=== PATIENT | female | born 1980 | race Caucasian/White ===

== ENCOUNTER 2020-12-01 08:03 | Outpatient (CLI) | payer OTHER, SELFPAY | END 2020-12-01 08:04 | disposition home or self-care (01) | LOC: ANHCOVIDVC 08:03 | PROVIDERS: PCP Family Medicine | DX: Z23 Encounter for immunization (principal) | CPT/HCPCS: 0001A; 91300 ==

== ENCOUNTER 2020-12-22 08:07 | Outpatient (CLI) | payer OTHER, SELFPAY | END 2020-12-22 08:08 | disposition home or self-care (01) | LOC: ANHCOVIDVC 08:07 | PROVIDERS: PCP Family Medicine | DX: Z23 Encounter for immunization (principal) | CPT/HCPCS: 0002A; 91300 ==

== ENCOUNTER 2023-04-03 09:49 | Outpatient (CLI) | payer OTHER, SELFPAY ==
[2023-04-03 21:12] LABS: Alanine Aminotransferase 45 U/L (6-35); Albumin Level 4.1 g/dL (3.5-5.1); Alkaline Phosphatase 98 U/L (38-126); Anion Gap 6 mmol/L (8-16); Aspartate Amino Transferase 45 U/L (14-36); Bilirubin,Total 0.4 mg/dL (0.2-1.3); Blood Urea Nitrogen 11 mg/dL (7-17); Calcium 9.4 mg/dL (8.4-10.2); Carbon Dioxide 27 mmol/L (22-30); Chloride 104 mmol/L (98-107); Estimated Glomerular Filt Rate > 60; Glucose 86 mg/dL (65-110); Potassium 4.5 mmol/L (3.4-5.0); Sodium 137 mmol/L (137-145)
[2023-04-04 01:16] LABS: Hemoglobin A1C 5.7 % (<5.7)
== END 2023-04-03 09:50 | disposition home or self-care (01) ==
LOC: ANHGOSHLAB 09:52
PROVIDERS: PCP Family Medicine; Visit Provider Family Medicine
DX: E78.5 Hyperlipidemia, unspecified (principal); R53.83 Other fatigue; R73.9 Hyperglycemia, unspecified
CPT/HCPCS: 36415; 80053; 83036; 84443

== ENCOUNTER 2023-09-27 14:30 | Outpatient (CLI) | payer OTHER, SELFPAY ==
[2023-09-27 19:39] LABS: Alanine Aminotransferase 38 U/L (6-35); Albumin Level 4.2 g/dL (3.5-5.1); Alkaline Phosphatase 95 U/L (38-126); Anion Gap 9 mmol/L (8-16); Aspartate Amino Transferase 32 U/L (14-36); Bilirubin,Total 0.5 mg/dL (0.2-1.3); Blood Urea Nitrogen 12 mg/dL (7-17); Calcium 9.6 mg/dL (8.4-10.2); Carbon Dioxide 23 mmol/L (22-30); Chloride 105 mmol/L (98-107); Estimated Glomerular Filt Rate > 60; Glucose 99 mg/dL (65-110); Sodium 137 mmol/L (137-145)
[2023-09-27 20:00] LABS: Hepatitis B Surface Antigen Negative (Negative)
[2023-09-27 20:06] LABS: HAV RESULT Negative (Negative); Hemoglobin A1C 5.8 % (<5.7); Hepatitis B Core IgM Result Negative (Negative)
[2023-09-27 20:17] LABS: Hepatitis C Virus Antibody Negative (Negative)
== END 2023-09-27 14:31 | disposition home or self-care (01) ==
LOC: ANHGOSHLAB 14:31
PROVIDERS: PCP Family Medicine; Visit Provider Family Medicine
DX: R74.8 Abnormal levels of other serum enzymes (principal); E78.5 Hyperlipidemia, unspecified; R53.83 Other fatigue; R73.9 Hyperglycemia, unspecified
CPT/HCPCS: 36415; 80053; 80074; 82248; 83036; 84443

== ENCOUNTER 2024-04-07 08:39 | Outpatient (CLI) | payer OTHER, SELFPAY ==
[2024-04-07 15:54] LABS: Alanine Aminotransferase 34 U/L (6-35); Albumin Level 3.9 g/dL (3.5-5.1); Alkaline Phosphatase 90 U/L (38-126); Anion Gap 7 mmol/L (4-12); Aspartate Amino Transferase 44 U/L (14-36); Bilirubin,Total 0.5 mg/dL (0.2-1.3); Blood Urea Nitrogen 10 mg/dL (7-17); Calcium 9.3 mg/dL (8.4-10.2); Carbon Dioxide 26 mmol/L (22-30); Chloride 105 mmol/L (98-107); Cholesterol 169 mg/dL (0-200); Estimated Glomerular Filt Rate > 60; Glucose 94 mg/dL (65-110); HDL Direct 47 mg/dL; Potassium 4.2 mmol/L (3.4-5.0); Sodium 138 mmol/L (137-145); Triglycerides 110 mg/dL (<150)
[2024-04-07 16:05] LABS: LDL Cholesterol Direct 88 mg/dL
[2024-04-07 16:52] LABS: Hemoglobin A1C 5.8 % (<5.7)
== END 2024-04-07 08:40 | disposition home or self-care (01) ==
LOC: ANHGOSHLAB 08:41
PROVIDERS: PCP Family Medicine; Visit Provider Family Medicine
DX: E78.5 Hyperlipidemia, unspecified (principal); R73.9 Hyperglycemia, unspecified; R53.83 Other fatigue; R73.03 Prediabetes
CPT/HCPCS: 36415; 80053; 80061; 83036; 84443

== ENCOUNTER 2024-06-30 11:37 | Emergency (ER) | payer OTHER, SELFPAY ==
--- NOTE | ~2024-06-30 | XR_ITS ---
EXAMINATION: XR chest 2V 06/30/2024 12:31 INDICATION: Cough PROCEDURE: 2 view chest COMPARISON: No prior studies for comparison. FINDINGS: The lungs are clear. The cardiomediastinal silhouette is within normal limits. There are no pleural effusions. There is no pneumothorax suspected. IMPRESSION: 1: NO ACUTE CARDIOPULMONARY DISEASE. Reviewed, dictated and finalized at location B.
[2024-06-30 11:45] VITALS: BP 154/94; PULSE 98; RESP 18; TEMP 37.1; O2SAT 97
--- NOTE | 2024-06-30 12:10 | ED.URI ---
HPI - URI/Sore Throat General Chief Complaint: Upper Respiratory Infection Stated Complaint: Cold Symptoms Time Seen by Provider: 06/30/24 11:55 Source: patient and RN notes reviewed Mode of arrival: ambulatory Limitations: no limitations History of Present Illness HPI Narrative: Patient presents today with a one-week history of harsh cough, postnasal drip, shortness of breath with exertion. She also reports intermittent fevers up to 100 in the evenings. She has been taking Tylenol and ibuprofen with some relief. Four days ago she called her PCP's office to report her symptoms and they called her in a prescription for cephalexin which has not helped improve her symptoms. Related Data Home Medications Medication Instructions Recorded Confirmed sertraline 50 mg tablet 50 mg PO DAILY 06/30/24 06/30/24 Allergies Allergy/AdvReac Type Severity Reaction Status Date / Time ampicillin Allergy Unknown Rash Verified 06/18/24 14:02 clarithromycin Allergy Unknown Rash Verified 06/18/24 14:02 Review of Systems Review of Systems: CONSTITUTIONAL: Denies body aches, chills, or sweats.+ fever EYES: Denies visual changes, redness, or discharge. ENT: Denies rhinorrhea, congestion, sore throat, or otalgia.+ postnasal drip CARDIOVASCULAR: Denies chest pain, palpitations, or edema. RESPIRATORY: + cough, shortness of breath with exertion GASTROINTESTINAL: Denies abdominal pain, nausea, vomiting, or diarrhea. GENITOURINARY: Denies dysuria or hematuria. SKIN: Denies rash, itching, or wounds. MUSCULOSKELETAL: Denies back pain, joint pain, or myalgia. NEUROLOGIC: Denies headache, numbness, tingling, or weakness. PSYCH: Denies depression or anxiety. [facility] Past Medical History Medical History Prediabetes Social History Social History Smoking status: Former smoker Smoking end date: 09/17/12 Alcohol intake: never Comments At time of signature, I have reviewed and agree with nursing past medical, surgical, social and family history unless otherwise noted. Please see nursing chart for further information. There is no relevant family history pertinent to the presenting complaint Exam Narrative: GENERAL: Mildly ill-appearing, well-nourished, and in no acute distress. HEAD: Normocephalic, atraumatic. EYES: EOMI. No redness or drainage. Conjunctivae normal. ENT: Mucous membranes pink and moist. Nares clear. No rhinorrhea. TMs normal bilaterally. Throat normal. Uvula midline. NECK: Normal AROM. Supple. No lymphadenopathy. CHEST: No respiratory distress. Rhonchi in the left lower lobe, otherwise clear. Harsh cough noted frequently HEART: Regular rate and rhythm. No murmur appreciated. MUSCULOSKELETAL: No bony tenderness. EXTREMITIES: Normal range of motion. No edema. SKIN: Warm, dry, no rash. Capillary refill normal. Normal skin turgor. NEURO: No focal deficits. Alert and oriented x3. Gait steady. PSYCH: Normal affect. No signs of depression or anxiety. Course Course Level of Care: Express Care Visit Vital Signs Vital signs: Vital Signs Temperature 98.8 F 06/30/24 11:45 Pulse Rate 98 06/30/24 11:45 Respiratory Rate 18 06/30/24 11:45 Blood Pressure 154/94 H 06/30/24 11:45 Pulse Oximetry 97 06/30/24 11:45 Oxygen Delivery Room Air 06/30/24 11:45 Temperature 98.8 F 06/30/24 11:45 Pulse Rate 98 06/30/24 11:45 Respiratory Rate 18 06/30/24 11:45 Blood Pressure 154/94 H 06/30/24 11:45 Pulse Oximetry 97 06/30/24 11:45 Oxygen Delivery Room Air 06/30/24 11:45 Reviewed MDM - URI/Sore Throat MDM Narrative Medical decision making narrative: Chest x-ray negative for pneumonia. Patient will be placed on prednisone and some Cheratussin to help with bronchitis symptoms. Recommend PCP follow-up if symptoms persist. Patient agrees with plan. Anticipatory
== END 2024-06-30 12:54 | disposition home or self-care (01) ==
PROVIDERS: Emergency Provider Nurse Practitioner; PCP Family Medicine
DX: J40 Bronchitis, not specified as acute or chronic (principal); R73.03 Prediabetes; Z87.891 Personal history of nicotine dependence
CPT/HCPCS: 71046; 99213; G0463

== ENCOUNTER 2024-12-16 08:28 | Outpatient (CLI) | payer OTHER, SELFPAY ==
--- OUTSIDE RECORDS SUMMARY | 2024-12-16 08:42 | XMS_ITS | Clinical Summary ---
Author Organization [facility] Address [address] [place] [address] Care Team Providers Care Hang Gliding Instructor Name Role Phone Jose Manuel Ward MD Primary Care Provider [phone] Source Comments [facility],non-[facility] Affiliates and Associated Physician Practices is amultiple site organization consisting of ambulatory clinics and hospital sitesin [place], [place], [place] and [place]. This disclosure is being madepursuant to the Care Everywhere program and may not contain all information available regarding this patient. Last updated 18.[facility] Allergies Active Allergy Reactions Criticality Noted Date Comments Ampicillin Rash Medium 05/19/2022 Clarithromycin Rash Medium 05/19/2022 Medications * Be aware that medications may not be up to date on this document. Alwaysverify current medications with the patient. Medication Sig Dispensed Refills Start Date End Date Status omeprazole (PriLOSEC) 40 MG capsule Take 40 mg by mouth once daily 05/03/2022 Active Active Problems Problem Noted Date Diagnosed Date Chronic laryngitis 05/19/2022 Gastroesophageal reflux disease 05/19/2022 Social History Tobacco Use Types Packs/Day Years Used Date Smoking Tobacco: Former Cigarettes Smokeless Tobacco: Former Tobacco Cessation:Counseling Given: Not Answered Alcohol Use Standard Drinks/Week Comments Never 0 (1 standard drink = 0.6 oz pur e alcohol) Sex and Gender Information Value Date Recorded Sex Assigned at Not on file Gender Identity Not on file Sexual Orientation Not on file Last Filed Vital Signs Vital Sign Reading Time Taken Comments Blood Pressure 116/94 07/21/2022 1:31 PM CDT Pulse 71 07/21/2022 1:31 PM CDT Temperature 36.3 C (97.3 F) 07/21/2022 1:31 PM CDT Respiratory Rate 23 07/21/2022 1:31 PM CDT Oxygen Saturation 100% 07/21/2022 1:31 PM CDT Inhaled Oxygen Concentration - - Weight 106.8 kg (235 lb 6.4 oz) 022 12:00 PM CDT Height 157.5 cm (5' 2 ) 07/21/2022 12:0 0 PM CDT Body Mass Index 43.06 07/21/2022 12:00 PM CDT Plan of Treatment Health Maintenance Due Date Last Done Comments LIPID TESTING 1980 MAMMOGRAM 1982 PAP SMEAR 1982 HIV SCREENING 1997 HEPATITIS C SCREENING 05/05/2000 DTAP/TDAP/TD VACCINES (1 - Tdap) 2001 HEPATITIS B VACCINE (1 of 3 - 19+ 3-dose series) 2001 SCREENING FOR DIABETES 05/19/2022 COVID-19 VACCINE (4 - 2023-2 5 season) 2024 08/20/2021, 12/22/2020, 12/01/2020 INFLUENZA VACCINE (#1) 2024 DEPRESSION SCREENING 09/17/2024 ZOSTER VACCINE (1 of 2) 2032 HIB VACCINE Aged Out No longer eligi ble based on patient's age to complete this topic HPV VACCINE Aged Out No longer eligi ble based on patient's age to complete this topic MENINGOCOCCAL (Group B) VACCINE SHARED DECISION-MAKING Aged Out No longer eligible based on patient's age to complete this topic MENINGOCOCCAL GROUPS A/C/Y/W VACCINE Aged Out No longer eligible b ased on patient's age to complete this topic PNEUMOCOCCAL VACCINE Aged Out No long er eligible based on patient's age to complete this topic Care Teams Hang Gliding Instructor Relationship Specialty Start Date End Date Jose Manuel Ward MD [address] [place] [id number] PCP - General 05/02/22
--- OUTSIDE RECORDS SUMMARY | 2024-12-16 08:42 | XMS_ITS | Clinical Summary ---
Author Organization [facility] Address [address] [place] [address] Care Team Providers Care R D Manager Name Role Phone Jose Manuel Ward MD Primary Care Provider [phone] Karen Parra MD Unavailable [phone] Allergies Active Allergy Reactions Criticality Noted Date Comments Ampicillin Rash Medium 05/19/2022 Clarithromycin Rash Medium 05/19/2022 Medications omeprazole (PriLOSEC) 40 mg capsule Take 1 capsule (40 mg total) by mouth daily 02/21/2023 Active Active Problems Problem Noted Date Diagnosed Date Abnormal mammogram 05/03/2023 Overview (05/07/2023): 05/02/2023 - Incomplete Mamm - Rt asymmetry - scheduled for Dx Rt Mamm & Rt US on 05/04/23 Rt Mamm / Rt US 05/04/2023 results Probably Benign...REC: US in 6 mos. Cervical cancer screening 03/22/2023 Overview (03/22/2023): 03/13/23 - Pap - ASCUS, HR HPV - Negative Routine gynecological examination 03/13/2023 Assessment & Plan (03/13/2023 2:06 PM CDT): Here for annual exam. Normal rehabilitation physician exam today. Encouraged regular exercise and healthy diet and lifestyle. Monthly SBEs encouraged. Annual mammograms recommended. Encounter for IUD removal 03/13/2023 Surgical History Surgery Date Site/Laterality Comments LAPAROSCOPY 09/17/1996 - 09/16/1997 Ovarian cyst CARPAL TUNNEL RELEASE LITHOTRIPSY 2007 & 2011 KNEE ARTHROSCOPY 09/17/2005 - 09/16/2006 Left BREAST BIOPSY 09/17/2009 - 09/16/2010 Right CERVICAL BIOPSY W/ LOOP ELECTRODE EXCISION 02/22/2015 and Mirena insertion - IGNACIA III on Bx - Path NEGATIVE / Rempe Medical History Medical History Date Comments Kidney stone Lithotripsy 2007 & 2011 Anxiety 06/2018 Symptomatice, se en here, started on Lexapro 10mg, referred to [facility] - f/u here for med check in 3 wks, unless seen by [facility] before then Abnormal mammogram 05/02/2023 - Incomplete Mamm - Rt asymmetry,.... 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 Gender Identity Not on file Sexual Orientation Not on file Obstetrics History Para Term AB IAB SAB Ectopic Multiple Livin g Live Births 2 1 1 1 1 1 Date Outcome GA Total Labor Labor/2nd/3rd Weight Sex Type Anes PTL Irais A1 A5 Name Clin SAB 2009 Term M Vag-Sp ont Luis A Mejia Last Filed Vital Signs Vital Sign Reading Time Taken Comments Blood Pressure 110/76 03/13/2023 10:07 AM CDT Pulse - - Temperature - - Respiratory Rate - - Oxygen Saturation - - Inhaled Oxygen Concentration - - Weight 108.9 kg (240 lb) 03/13/2023 10:07 AM CDT Height 158.8 cm (5' 2.5 ) 03/13/2023 10:07 AM CD T Body Mass Index 43.2 03/13/2023 10:07 AM CDT Plan of Treatment Health Maintenance Due Date Last Done Comments Depression Screening 1982 Hepatitis C Screening 1982 DTaP/Tdap/Td Vaccine (1 - Tdap) 1993 Varicella Vaccines (1 of 2 - 13+ 2-dose series) 1995 Hepatitis B Screening 2000 Cervical Cancer Screening 03/13/20242022, 03/13/2023, 11/17/2020 Regular Well Visit/Exam 18-64 03/13/2024 03/13/2023 Breast Cancer Screening-Mammogram 04/27/2024 04/27/2023 Covid-19 Vaccine ( season) 2024 07/01/2022, 08/20/2021, 12/22/2020, Additional history exists Influenza Vaccine (#1) 2024 07/01/2022 HPV Vaccines Aged Out No longer eligi ble based on patient's age to complete this topic Pneumococcal vaccine <65 Aged Out No longer eligible based on patient's age to complete this topic Procedures Procedure Name Priority Date/Time Associated Diagnosis Comments SCREENING MAMMOGRAM BILATERAL W ANUP Schedule Routine, Read Routine (OP Routine) 04/27/2023 3:45 PM CDT Routine gynecological examination PAP WITH REFLEX TO HIGH RISK HPV Routine 03/13/2023 10:33 AM CDT Routine gynecological examination Special screening examination for human papillomavirus (HPV) Screening for malignant neoplasm of the cervix from Last 3 Months or Most Recently Relevant to Health Maintenance Results * (ABNORMAL) Screening Mammogram Bilateral W Anup (04/27/2023 3:45 PM CDT) Anatomical Region Laterality Modality Breast Bilateral Mammography Narrative 04/27/2023 4:16 PM CDT Examination: Screening Mammogram Bilateral W Anup: 04/27/23 Clinical: Routine gynecological examination. Prior Study Comparisons: None. This is a baseline study. Findings: Screening Mammogram Bilateral W Anup Right 1) Asymmetry: There is an asymmetry seen in the outer region of the right breast in the middle depth on the CC view. Left No significant masses, malignant type calcifications, skin thickening, nipple retraction, or significant lymphadenopathy is noted in this breast. The CAD review showed no significant findings. The breasts have scattered areas of fibroglandular density. The patient will be notified of results by letter. Impression: BI-RADS ATLAS category (overall): 0 - Incomplete: Needs Additional Imaging Evaluation Additional Mammography views with possible ultrasound is recommended. Overall Assessment: 0 - Incomplete: Needs Additional Imaging Evaluation Result [facility] Karen Parra MD IMG MAMMO PROCEDURES Final Result * (ABNORMAL) Pap with reflex to High Risk HPV (03/13/2023 10:33 AM CDT) Thin prep (Pap test) 03/13/2023 10:33 AM CDT 03/14/2023 4:21 PM CDT Narrative PATHOLOGY [facility] - 03/19/2023 7:10 PM CDT EPIC results best viewed via link to PDF [address] [address] Tele: Alma Davis MD - Academic Advisor CYTOLOGY REPORT Note to Patients: This report may contain a detailed description of human tissue sent by a health care provider to the laboratory for pathologic evaluation. The content of this report is essential for diagnosis and may provide important critical findings. This information may be unfamiliar to patients to review without a medical professional present. It is advised that the patient review this report in the presence of a health care provider who can answer questions and explain the details. Patient Name: SUSAN BEAL Address: [address] [place] [address] Gender: F : 1980 (Age: 42) Service: Location: [facility] : [id number] [facility] #: [id number] Patient Type: [facility] SPECIMEN Taken: 03/13/2023 Reported: 03/19/2023 Physician(s): Karen Parra M.D. FINAL DIAGNOSIS: SOURCE OF SPECIMEN - ThinPrep Pap w/ reflex HPV: STATEMENT OF ADEQUACY Source: Cervical/Endocervical - Satisfactory for interpretation - Endocervical /Transformation Zone component present - Case screened using computer assisted imaging technology and manually re- screened by a tub wash operator. GENERAL CATEGORIZATION: - Epithelial cell abnormality INTERPRETATION: - Atypical squamous cells of undetermined significance (ASCUS) - Acute Inflammation - Specimen sent for reflex HPV testing. as/03/19/2023 19:10Examining Pathologist: Gogo Key CT (ASCP) Report Reviewed and Electronically Signed By Miguel Angel Purdy M.D.Clerical Data Follow A; G0145, 19101 Z01.419 Z11.51 Z12.4 ADDENDA: Addendum Comment Ancillary Testing: HPV High Risk Group (16, 18, 31, 33, 35, 39, 45, 51, 52, 56, 58, 59, 66 and 68) - Not Detected Reference Range: Not Detected This test was performed using the EVAN 4800 CHUN Montes (ASCP) Date Ordered: 03/19/2023 Status: Signed Out Date Complete: 03/22/2023 By: CHUN Montes (ASCP) Date Reported: 03/22/2023 CLINICAL DIAGNOSIS AND HISTORY Last Menstrual Period: NO MENSES W/IUD Contraceptive History: IUD REPORT IMAGES AND/OR SCANNED DOCUMENTS ONLY VIEWABLE IN PDF FORMAT The Pap test is a screening test used to aid in the detection of cervical cancer and its precursors. It should not be the sole means by which malignant and premalignant lesions are diagnosed. Both false negative and false positive results may occur. It also has poor sensitivity for the detection of endometrial lesions and should not be used to evaluate suspected endometrial abnormalities. For these reasons it is most important to obtain Pap tests at regular intervals, as recommended by your physician or nurse practitioner. Karen Parra MD LAB CYTOLOGY ORDERABLES [facility] al Result PATHOLOGY [facility] Laboratory Receiving [address] [place] [address] from Last 3 Months or Most Recently Relevant to Health Maintenance Insurance [facility] CHOICE PLUS [facility] HMO/PPO Address: [place] [address] [facility] HMO/PPO Address: [place] [address] [facility] HMO/PPO Address: [place] [address] Care Teams R D Manager Relationship Specialty Start Date End Date Jose Manuel Ward MD PCP - General 01/02/17 Karen Parra MD [address] [facility] [address] [place] [address] Consulting Physician Obstetrics and Gynecology 03/02/23
--- OUTSIDE RECORDS SUMMARY | 2024-12-16 08:42 | XMS_ITS | Clinical Summary ---
Author Organization [facility] Address [address] [place] [address] Phone Care Team Providers Care Bath Steward Name Role Phone Unavailable Primary Care Provider Unavailabl e Medications Medication Sig Dispensed Refills Start Date End Date Status levonorgestrel (MIRENA, 52 MG,) 20 MCG/24HR IUD 5 year 04/20/2014 Active Active Problems Problem Noted Date Diagnosed Date Calculus of kidney 05/13/2013 Social History Tobacco Use Types Packs/Day Years Used Date Smoking Tobacco: Never Assessed Sex and Gender Information Value Date Recorded Sex Assigned at Not on file Gender Identity Not on file Sexual Orientation Not on file Plan of Treatment Not on file
--- OUTSIDE RECORDS SUMMARY | 2024-12-16 08:42 | XMS_ITS | Continuity of Care Document ---
Author Organization [facility] Address [address] [place] [address] [address] [place] [address] Phone Care Team Providers Care Mental Measurements Teacher Name Role Phone [facility] Unavailable Unavail able Luis A Kim Unavailable Unavailable Advance Directives Directive Yes / No Effective Date File Name No Information Encounters Encounter Description Practice Location Reason(s) For Visit Diagnoses Date Provider Providers Copied on Encounter [facility], [address] [place] [address] [address], [place], [place], [id number], [place] tel:[phone] SEC [facility] No Information [facility] [address] [facility], [address], [place], [place], [id number] , [place]. [phone] Referring Provider: Faye Cleveland, [address] [place] [address] [address], [place], [address]. tel:[phone] sulting Provider: Luis A Kim, [address] [place] [address], [place], [address]. tel:[phone] Family History Family Member Type Diagnosis Age [...]
--- OUTSIDE RECORDS SUMMARY | 2024-12-16 08:42 | XMS_ITS | Referral Summary ---
Author Organization [facility] Address [address] [place] [address] Care Team Providers Care Forest Botany Instructor Name Role Phone Jose Manuel Ward MD Primary Care Provider [phone] Karen Parra MD Unavailable [phone] Allergies Active Allergy Reactions Criticality Noted Date [...] PM CDT): Here for annual exam. 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 Encouraged regular exercise and healthy diet and lifestyle. Monthly SBEs encouraged. Annual mammograms recommended. 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 Gender Identity Not on file Sexual Orientation [...] 03/13/2023 10:07 AM CDT Plan of Treatment Not on file Procedures Procedure Name Priority Date/Time Associated Diagnosis [...] - Incomplete: Needs Additional Imaging Evaluation Result [facility] Karen Parra MD IMG MAMMO PROCEDURES Final Result * (ABNORMAL) Pap with reflex to High Risk HPV (03/13/2023 10:33 AM CDT) Thin prep (Pap test) 03/13/2023 10:33 AM CDT 03/14/2023 4:21 PM CDT Narrative PATHOLOGY [facility] - 03/19/2023 7:10 PM CDT EPIC results best viewed via link to PDF [address] [address] Tele: Alma Davis MD - Groutman CYTOLOGY REPORT Note to Patients: This report [...] the details. Patient Name: SUSAN BEAL Address: [address] [place] [address] Gender: F : 1980 (Age: 42) Service: Location: [facility] : [id number] [facility] #: [id number] Patient Type: [facility] SPECIMEN Taken: 03/13/2023 Reported: 03/19/2023 Physician(s): Karen Parra M.D. FINAL DIAGNOSIS: SOURCE OF SPECIMEN - ThinPrep Pap w/ reflex HPV: STATEMENT OF ADEQUACY Source: Cervical/Endocervical - Satisfactory for interpretation - Endocervical /Transformation Zone component present - Case screened using computer assisted imaging technology and manually re- screened by a testing coordinator. GENERAL CATEGORIZATION: - Epithelial cell abnormality INTERPRETATION: - Atypical squamous cells of undetermined significance (ASCUS) - Acute Inflammation - Specimen sent for reflex HPV testing. as/03/19/2023 19:10Examining Pathologist: Gogo Kye CT (ASCP) Report Reviewed and Electronically Signed By Miguel Angel Purdy M.D.Clerical Data Follow A; G0145, 81399 Z01.419 Z11.51 Z12.4 ADDENDA: Addendum Comment Ancillary [...] practitioner. Karen Parra MD LAB CYTOLOGY ORDERABLES Fin al Result PATHOLOGY [facility] Laboratory Receiving [address] [place] [address] from Last 3 Months or Most Recently Relevant to Health Maintenance Insurance [facility] CHOICE PLUS Care Teams Forest Botany Instructor Relationship Specialty Start Date End Date Jose Manuel Ward MD PCP - General 01/02/17 Karen Parra MD [address] [facility] [address] [place] [address] Consulting Physician Obstetrics and Gynecology 03/02/23
[2024-12-16 14:36] LABS: Alanine Aminotransferase 31 U/L (6-35); Albumin Level 4.3 g/dL (3.5-5.1); Alkaline Phosphatase 95 U/L (38-126); Anion Gap 10 mmol/L (4-12); Aspartate Amino Transferase 58 U/L (14-36); Bilirubin,Total 0.4 mg/dL (0.2-1.3); Blood Urea Nitrogen 15 mg/dL (7-17); Calcium 9.5 mg/dL (8.4-10.2); Carbon Dioxide 24 mmol/L (22-30); Chloride 105 mmol/L (98-107); Estimated Glomerular Filt Rate > 60; Glucose 97 mg/dL (65-110); Potassium 4.5 mmol/L (3.4-5.0); Sodium 139 mmol/L (137-145)
[2024-12-16 17:10] LABS: Hemoglobin A1C 5.6 % (<5.7)
== END 2024-12-16 08:29 | disposition home or self-care (01) ==
LOC: ANHGOSHLAB 08:31
PROVIDERS: PCP Family Medicine; Visit Provider Family Medicine
DX: R73.03 Prediabetes (principal)
CPT/HCPCS: 36415; 80053; 83036

== ENCOUNTER 2025-07-13 09:18 | Outpatient (CLI) | payer OTHER, SELFPAY ==
--- OUTSIDE RECORDS SUMMARY | 2000-07-31 19:00 | XMS_ITS | Continuity of Care Document ---
Author Organization [facility] Address [address] [place] [address] [address] [place] [address] Phone Care Team Providers Care Labor Service Representative Name Role Phone [facility] Unavailable Unavail able Luis A Kim Unavailable Unavailable Advance Directives Directive Yes / No Effective Date File Name No Information Encounters Encounter Description Practice Location Reason(s) For Visit Diagnoses Date Provider Providers Copied on Encounter [facility], [id number] [place] [address] [address], [place], [place], [id number], [place] tel:[phone] SEC [facility] No Information [facility] [address] [facility], [facility] [address], [place], [place], [id number] , [place]. tel:[phone] Referring Provider: Faye Cleveland, [address] [place] [address] [address], [place], [address]. tel:[phone] sulting Provider: Luis A Kim, [address] [place] [address], [place], [address]. tel:[phone] Family History Family Member Type Diagnosis Age At Onset No Information Payers Payer name Insurance type Covered democrat ID Authoriza tion(s) No Information Social History Type Description Quantity Date Captured Comments Sex Female Smoking Status No Information Chief Complaint And Reason For Visit No Information Reason For Referral Reason For Referral No Information History Of Present Illness Encounter Date Complaint History Of Prese nt Illness No Information Functional Status Date Functional Assessmen t No Information Instructions Date Instruction Additional Infor mation No Information Assessments Type Assessment Date No Information Patient Care Teams Name Effective Dates (start - stop) Status Members No Information
--- OUTSIDE RECORDS SUMMARY | 2025-07-13 10:05 | XMS_ITS | Clinical Summary ---
Author Organization [facility] Address [address], [place] [address] Phone Care Team Providers Care Lawn Care Worker Name Role Phone Unavailable Primary Care Provider Unavailabl e Medications levonorgestrel (MIRENA, 52 MG,) 20 MCG/24HR IUD 5 year 04/20/2014 Act jena Active Problems Problem Noted Date Diagnosed Date Calculus of kidney 05/13/2013 Social History Tobacco Use Types Packs/Day Years Used Date Smoking Tobacco: Never Assessed Comments Unknown Sex and Gender Information Value Date Recorded Sex Assigned at Not on file Legal Sex Female 9:30 AM MST Gender Identity Not on file Sexual Orientation Not on file Plan of Treatment Not on file
--- OUTSIDE RECORDS SUMMARY | 2025-07-13 10:05 | XMS_ITS | Clinical Summary ---
Author Organization [facility] Address [address] [place] [address] Care Team Providers Care Precipitation Equipment Tender Name Role Phone Jose Manuel Ward MD Primary Care Provider [phone] Source Comments [facility] Affiliates and Associated Physician Practices is amultiple site organization consisting of ambulatory clinics and hospital sitesin [place], [place], [place] and [place]. This disclosure is being madepursuant to the Care Everywhere program and may not contain all information available regarding this patient. Last updated 18.[facility] Allergies Active Allergy Reactions Criticality Noted Date Comments Ampicillin Rash Medium 05/19/2022 Clarithromycin Rash Medium 05/19/2022 Medications * Be aware that medications may not be up to date on this document. Alwaysverify current medications with the patient. omeprazole (PriLOSEC) 40 MG capsule Take 40 [...] drink = 0.6 oz pur e alcohol) Comments No Sex and Gender Information Value Date Recorded Sex Assigned at Not on file Legal Sex Female 2:12 PM CDT Gender Identity Not on file Sexual Orientation [...] 12:00 PM CDT Height 157.5 cm (5' 2) 07/21/2022 12:0 0 PM CDT Body Mass Index 43.06 07/21/2022 12:00 PM CDT Plan of Treatment Health Maintenance Due Date Last Done Comments LIPID TESTING 1980 MAMMOGRAM 1980 HIV SCREENING 1997 HEPATITIS C SCREENING 05/05/2000 DTAP/TDAP/TD VACCINES (1 - Tdap) 2001 HEPATITIS B VACCINE (1 of 3 - 19+ 3-dose series) 2001 PAP SMEAR 2003 HPV VACCINE (1 - 3-dose SCDM series) 2009 SCREENING FOR DIABETES 05/19/2022 DEPRESSION SCREENING 09/17/2024 COVID-19 VACCINE (4 - 2024-2 6 season) 2025 08/20/2021, 12/22/2020, 12/01/2020 INFLUENZA VACCINE (#1) 2025 ZOSTER VACCINE (1 of 2) 2032 HIB [...] on patient's age to complete this topic Insurance [facility] Care Teams Precipitation Equipment Tender Relationship Specialty Start Date End Date Jose Manuel Ward MD [address] [place] [id number] PCP - General 05/02/22
--- OUTSIDE RECORDS SUMMARY | 2025-07-13 10:05 | XMS_ITS | Clinical Summary ---
Author Organization [facility] Address [address] [place] [address] Care Team Providers Care Scrap Preparer Name Role Phone Jose Manuel Ward MD Primary Care Provider [phone] Karen Parra MD Unavailable [phone] Allergies Active Allergy Reactions Criticality Noted Date Comments Ampicillin Rash Medium 05/19/2022 Clarithromycin Rash Medium 05/19/2022 Medications omeprazole (PriLOSEC) 40 mg capsule Take 1 capsule (40 mg total) by mouth daily 02/21/2023 Active Active Problems Problem Noted Date Diagnosed Date Abnormal mammogram 05/03/2023 Overview (01/07/2025): 01/07/25 - B/L Dx Mamm / Rt US results BENIGN, return to annual screening mammography 05/02/2023 - Incomplete Mamm - Rt asymmetry - scheduled for Dx Rt Mamm & Rt US on 05/04/23 Rt Mamm / Rt US 05/04/2023 results Probably Benign...REC: US in 6 mos. Cervical cancer screening 03/22/2023 Overview (03/22/2023): 03/13/23 - Pap - ASCUS, HR HPV - Negative Routine gynecological examination 03/13/2023 Assessment & Plan (03/13/2023 2:06 PM CDT): Here for annual exam. 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 Encouraged regular exercise and healthy [...] here, started on Lexapro 10mg, referred to [facility] - f/u here for med check in 3 wks, unless seen by [facility] before then Abnormal mammogram 01/07/25 - B/ L Dx Mamm / Rt US results BENIGN, return to annual screening mammography.....05/02/2023 - Incomplete Mamm - Rt asymmetry,.... 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 Gender Identity Not on file Sexual Orientation [...] 10:07 AM CDT Height 158.8 cm (5' 2.5) 03/13/2023 10:07 AM CD T Body Mass Index 43.2 03/13/2023 10:07 AM CDT Plan of Treatment Health Maintenance Due Date Last Done Comments Depression Screening 1982 Hepatitis C Screening 1982 DTaP/Tdap/Td Vaccine (1 - Tdap) 1993 Varicella Vaccines (1 of 2 - 13+ 2-dose series) 1995 Hepatitis B Screening 2000 HPV Vaccines (1 - 3-dose SCDM series) 2009 Cervical Cancer Screening 03/13/20242022, 03/13/2023, 11/17/2020 Regular Well Visit/Exam 18-64 03/13/2024 03/13/2023 Covid-19 Vaccine ( season) 2025 07/01/2022, 08/20/2021, 12/22/2020, Additional history exists Influenza Vaccine (#1) 2025 07/01/2022 Breast Cancer Screening-Mammogram 01/07/2026 01/07/2025, 04/27/2023 Pneumococcal vaccine <65 Aged Out No longer eligible based on patient's age to complete this topic Procedures Procedure Name Priority Date/Time Associated Diagnosis Comments DIAGNOSTIC MAMMOGRAM BILATERAL W ANH Schedule Routine, Read Routine (OP Routine) 01/07/2025 7:20 AM CDT Abnormal mammogram PAP WITH REFLEX TO HIGH RISK HPV Routine 03/13/2023 10:33 AM CDT Routine gynecological examination Special screening examination for human papillomavirus (HPV) Screening for malignant neoplasm of the cervix from Last 3 Months or Most Recently Relevant to Health Maintenance Results * DIAGNOSTIC MAMMOGRAM BILATERAL W ANH (01/07/2025 7:20 AM CDT) Anatomical Region Laterality Modality Breast Bilateral Mammography 01/07/2025 7:58 AM CDT Impressions 01/07/2025 7:58 AM CDT Overall final assessment: BI-RADS Category 2: Benign 1. Benign nodule right breast 9:00 at 4 to 5 cm from the nipple, likely fibroadenoma or complex cyst. No further evaluation required 2. No mammographic evidence of malignancy Electronically signed by: Rach Cramer M.D. Narrative 01/07/2025 7:58 AM CDT EXAM: Bilateral 3-D tomosynthesis diagnostic mammogram, limited right breast ultrasound HISTORY: Annual evaluation. Follow-up right breast nodule COMPARISON: Right breast ultrasound 11/22/2023, 05/04/2023, prior mammograms FINDINGS: Bilateral 3-D tomosynthesis diagnostic mammogram and limited right breast ultrasound was performed. TISSUE DENSITY:There are scattered areas of fibroglandular density. There is no new mass, distortion or suspicious calcification in either breast. The equal density obscured nodule in the middle depth right breast at 9:00 is stable since 2022. Sonography right breast 9:00 at 4 to 5 cm from the nipple shows a stable circumscribed hypoechoic nodule with possible tiny cystic change peripherally. There is no internal vascularity. This nodule is 8.6 x 5.2 x 10 mm and is stable since 05/04/2023. Sonographic features are consistent with benignity. No further evaluation is required. This is likely small fibroadenoma or complex cyst. Annual screening mammography is recommended. These results were conveyed to the patient at the time of the study. us Bette Soto MD IMG MAMMO PROCEDURES Final Re sult * (ABNORMAL) Pap with reflex to High Risk HPV (03/13/2023 10:33 AM CDT) Thin prep (Pap test) 03/13/2023 10:33 AM CDT 03/14/2023 4:21 PM CDT Narrative PATHOLOGY [facility] - 03/19/2023 7:10 PM CDT EPIC results best viewed via link to PDF [address] [address] Tele: Alma Davis MD - Doctor Of Pharmacy CYTOLOGY REPORT Note to Patients: This report [...] the details. Patient Name: SUSAN BEAL Address: [address] [place] [address] Gender: F : 1980 (Age: 42) Service: Location: N : [id number] Hospital #: [id number] Patient Type: [facility] SPECIMEN Taken: 03/13/2023 Reported: 03/19/2023 Physician(s): Karen Parra M.D. FINAL DIAGNOSIS: SOURCE OF SPECIMEN - ThinPrep Pap w/ reflex HPV: STATEMENT OF ADEQUACY Source: Cervical/Endocervical - Satisfactory for interpretation - Endocervical /Transformation Zone component present - Case screened using computer assisted imaging technology and manually re- screened by a personal loan specialist. GENERAL CATEGORIZATION: - Epithelial cell abnormality INTERPRETATION: - Atypical squamous cells of undetermined significance (ASCUS) - Acute Inflammation - Specimen sent for reflex HPV testing. as/03/19/2023 19:10Examining Pathologist: Gogo Key CT (ASCP) Report Reviewed and Electronically Signed By Miguel Angel Purdy M.D.Clerical Data Follow A; G0145, 23145 Z01.419 Z11.51 Z12.4 ADDENDA: Addendum Comment Ancillary [...] LAB CYTOLOGY ORDERABLES Fin al Result PATHOLOGY [facility] Laboratory Receiving [address] [place] [address] from Last 3 Months or Most Recently Relevant to Health Maintenance Insurance [facility] [employer] [facility] [facility] H[facility]/PPO Address: [address] [address] [place] [address] [facility] P[facility] P[facility] Care Teams Scrap Preparer Relationship Specialty Start Date End Date Jose Manuel Ward MD PCP - General 01/02/17 Karen Parra MD [address] [place] [address] Consulting Physician Obstetrics and Gynecology 03/02/23
[2025-07-13 13:31] LABS: CRP < 0.5 mg/dL (<1.0); Uric Acid 5.3 mg/dL (2.5-7.5)
== END 2025-07-13 09:19 | disposition home or self-care (01) ==
LOC: ANHGOSHLAB 09:19
PROVIDERS: PCP Family Medicine; Visit Provider Student in an Organized Health Care Education/Training Program
DX: M79.642 Pain in left hand (principal)
CPT/HCPCS: 36415; 84550; 85652; 86140

== ENCOUNTER 2025-07-13 10:01 | Outpatient (CLI) | payer OTHER, SELFPAY ==
--- NOTE | ~2025-07-13 | XR_ITS ---
EXAMINATION: XR hand LT min 3V, 07/13/2025 10:15 CDT HISTORY: Pain in left hand x 2 weeks, no inj, carpal tunnel surg 20 COMPARISON: No comparisons available. Findings: No acute fracture or malalignment. No significant degenerative changes. Soft tissues unremarkable. Impression: No acute fracture or malalignment. Reviewed, dictated and finalized at location P. Impression: No acute fracture or malalignment.
== END 2025-07-13 10:02 | disposition home or self-care (01) ==
LOC: GOSHIMG 10:01
PROVIDERS: PCP Family Medicine; Visit Provider Student in an Organized Health Care Education/Training Program
DX: M79.642 Pain in left hand (principal)
CPT/HCPCS: 73130

== ENCOUNTER 2025-08-07 19:20 | Emergency (ER) | payer OTHER, SELFPAY ==
--- NOTE | 2025-08-07 19:21 | ED.UPPEXIN ---
HPI - Extremity Injury (Upper) General Chief Complaint: Extremity Problem,Nontraumatic Stated Complaint: L HAND SWELLING Time Seen by Provider: 08/07/25 19:21 Source: patient Mode of arrival: ambulatory Limitations: no limitations History of Present Illness HPI narrative: Susan is a 45 year old female patient presenting to the clinic today with c/o left hand swelling. Seen her PCP on Jul 13 for same issue. Has labs completed to r/o gout- sed rate, uric acid, and crp were normal at that time. Had x-ray completed and was negative for any acute fracture or malalignment. Is having pain to the left hand in between the 2nd 3rd fingers. Does have some slight bruising over this area. Denies any known injury/trauma. States it is becoming more painful when she is typing Related Data Allergies Allergy/AdvReac Type Severity Reaction Status Date / Time ampicillin Allergy Unknown Rash Verified 08/07/25 19:22 clarithromycin Allergy Unknown Rash Verified 08/07/25 19:22 Review of Systems Review of Systems: Pertinent positives per HPI. Patient denies any fever, chills, rash, headache, visual changes, dizziness, cough, runny nose, sore throat, shortness of breath, chest pain, palpitations, nausea, vomiting, diarrhea, constipation, abdominal pain, or any urinary issues. [facility] Past Medical History Medical History Prediabetes Social History Social History Smoking status: Former smoker Smoking end date: 09/17/12 Alcohol intake: never Substance use type: marijuana Other substance usage details: Occationally Do You Feel Safe in your Home?: Yes Comments At the time of my signature, I reviewed and agree with the nursing past medical, surgical, social, and family history. There is no relevant family history pertinent to the patient complaint. Exam Narrative: General: Well-developed, morbidly obese, in no apparent distress Head: Normocephalic, atraumatic. Cardio: Regular rate and rhythm, s1 and s2 normal, no murmur appreciated. Resp: Clear to auscultation bilaterally, no rhonchi, rales, wheezing or rubs. Musculoskeletal: No deformity,mild swelling, tender to palpation between the left 2nd and 3rd fingers of the left hand, faint bruising noted in this area, grossly normal range of motion, muscle strength strong and equal, peripheral pulse strong, no edema, no cyanosis, normal gait and station Course Course Emergency Course: Portions of this record may have been created with voice recognition software. Level of Care: Express Care Visit Vital Signs Vital signs: Vital signs reviewed MDM - Extremity Injury (Upper) MDM Narrative Medical decision making narrative: At the time of visit patient is resting comfortably on the exam table. Patient appears to be nontoxic. Plan: I suspect patient has mild swelling and pain to the left hand in between the 3rd and 2nd finger. Faint bruising visible.-no known injury. Will send in prescription for Medrol Dosepak to help with swelling/inflammation. Recommend ice pack. Supportive measures were discussed with the patient and they voiced understanding discharge instructions and agrees to treatment plan. Return precautions reviewed Differential Diagnosis Differential diagnosis: Likely other (Hand swelling, arthritis, gout, carpal tunnel, contusion, hematoma) Discharge Plan Discharge Clinical Impression: Hand pain, left Patient Disposition: Home Condition: Stable Instructions: Antibiotic Form, Contusion in Adults (ED) Additional Instructions: Take Medrol Dosepak as prescribed May take Tylenol additionally as needed for pain May apply ice pack to the affected area to help alleviate pain and swelling Follow-up with your primary care doctor as discussed Patient Language: Angolan Prescriptions: New methylprednisolone [Medrol (Armando)] 4 mg tablets,dose pack See Rx Instructions PO .COMPLEX Qty: 21 0RF Rx Instructions: orally per package directions No Action omeprazole 40 mg capsule,delayed release(DR/EC) 40 mg PO DAILY Qty: 90 1RF Follow-up/Referrals: Jose Manuel Ward MD [Primary Care Provider, [facility]] Time of Disposition: 19:32 Quality NIHSS Nursing Documentation ED NIHSS nursing documentation: reviewed/agree
[2025-08-07 19:27] VITALS: BP 141/99; PULSE 80; RESP 16; TEMP 36.7; O2SAT 100
== END 2025-08-07 19:34 | disposition home or self-care (01) ==
PROVIDERS: Emergency Provider Nurse Practitioner Family; PCP Family Medicine
DX: M79.642 Pain in left hand (principal); Z87.891 Personal history of nicotine dependence; F12.90 Cannabis use, unspecified, uncomplicated; R73.03 Prediabetes
CPT/HCPCS: 99213; G0463